=== PATIENT | male | born 1960 | race Caucasian/White ===

== ENCOUNTER → 2017-08-13 | Outpatient (CLI) | payer OTHER ==
--- NOTE | 2017-08-18 15:36 | P.ARTDOP ---
Arterial Doppler LOWER EXTREMITY ARTERIAL DOPPLER: DATE OF SERVICE: 08/13/2017 Reason for study: Bilateral leg pain. Doppler waveforms: Multiphasic bilaterally throughout. Pulse volume recording: Normal configuration. Pressure gradients: None dramatic. Ankle-brachial indices: Greater than 1 on the left and 0.87 on the right.. Toe pressures: [] on the right, [] on the left Impression: Left side is normal. 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
== END | disposition home or self-care (01) ==
LOC: RADUSWWP 09:04
PROVIDERS: ATTEND Family Medicine
DX: M79.605 Pain in left leg (principal); M79.604 Pain in right leg
CPT/HCPCS: 93923

== ENCOUNTER → 2017-12-01 | Outpatient (CLI) | payer MEDICARE, OTHER ==
--- NOTE | 2017-12-02 02:42 | MR ---
EXAMINATION TYPE: MR cspine/lspine wo con DATE OF EXAM: 12/01/2017 COMPARISON: Cervical spine 11/05/2008 HISTORY: Neck and low back pain TECHNIQUE: Multiplanar, multisequence imaging of the lumbar spine is performed without IV contrast. FINDINGS: There is mild straightening of the cervical vertebra. There is some narrowing of the C6-7 d isc space. There are small posterior disc herniations at CT 4 5 C5-6 C6-7. Cervical spinal cord has n ormal signal pattern. There is no edema. I see no significant spinal stenosis. There is no cervical p araspinal mass. There is slight narrowing also of C5-6 disc space. I see no focal bone destruction. T he brainstem is intact. Lumbar vertebra have normal alignment. There is slight decreased signal in the disks at L4-5 L5-S1. T here is small posterior disc bulging at L4-5 and L5-S1. There is developmentally adequate spinal [place] l. The neural foramina appear normal. I see no focal bone destruction. Sacroiliac joints appear intac t. There is some lateral disc bulging noted at L2-3 L3-4 on the left side. There is no compression fr acture. CONCLUSION: Spondylotic changes in the lower cervical spine with posterior disc bulging from C4 to C7. C5-[address] able compared to old exam. Disc bulging at C4-5 and C7-T1 is increased. No cervical bony spinal steno sis. Spondylotic changes in the lower lumbar spine with posterior disc bulging at L4-5 and L5-S1. No spina l stenosis. There is also some lateral disc bulging as above at L2-3 and L3-4 on the left side. No fr acture.
== END | disposition home or self-care (01) ==
LOC: RADMRIMAIN 18:04
PROVIDERS: ATTEND Psychiatry & Neurology Neurology
DX: M50.221 Other cervical disc displacement at C4-C5 level (principal); M51.27 Other intervertebral disc displacement, lumbosacral region; M47.812 Spondylosis without myelopathy or radiculopathy, cervical region; M47.817 Spondylosis without myelopathy or radiculopathy, lumbosacral region; Z88.8 Allergy status to other drugs, medicaments and biological substances
CPT/HCPCS: 72141; 72148

== ENCOUNTER → 2018-01-11 | Outpatient (CLI) | payer MEDICARE, OTHER ==
[2018-01-11 14:34] LABS: Albumin 4.4 g/dL (3.5-5.0); Bilirubin, Delta 0.2 mg/dL (0.0-0.2); Bilirubin,Unconjugated 0.2 mg/dL (0.0-1.1); Total Bilirubin 0.4 mg/dL (0.2-1.3); Total Protein 7.1 g/dL (6.3-8.2)
[2018-01-11 19:03] LABS: Iron Saturation 12.87 (15.00-50.00)
== END | disposition home or self-care (01) ==
LOC: LABWHC1 13:55
DX: R74.8 Abnormal levels of other serum enzymes (principal)
CPT/HCPCS: 36415; 80076; 82728; 83540; 83550

== ENCOUNTER → 2018-01-11 | Outpatient (CLI) | payer MEDICARE, OTHER ==
--- NOTE | 2018-01-11 14:47 | CTL ---
EXAMINATION TYPE: CT Low Dose Lung DATE OF EXAM ORDERED: 01/11/2018 HISTORY: Long-term tobacco use. Lung cancer screening Automated exposure control for dose reduction was used. SCREENING VISIT: Initial study COMPARISON: None TECHNIQUE: Low dose computed tomography scan was performed through the chest at 1 mm thick sections a nd reconstructed images in the coronal plane at [address] DIAGNOSTIC QUALITY: Satisfactory FINDINGS: LUNG NODULES: None. Few scattered micronodules for reference 2 x 3 mm nodule left mid lung axial image 155. No suspicious greater than 4 mm nodules are present. LUNGS: COPD: Severity: None Fibrosis: Severity: None Lymph nodes: None Other findings: None BILATERAL PLEURAL SPACE: Effusion: None Calcification: None Thickening: None Pneumothorax: None HEART: Heart Size: Normal Coronary calcification: Minimal Pericardial effusion: Minimal OTHER FINDINGS: Upper abdomen: Heterogeneous hypodense liver consistent with fatty infiltration Bony thorax: Mild multilevel spurring mid to lower thoracic spine Supraclavicular region: None Other: None IMPRESSION: No suspicious nodules are seen. FOLLOW UP CT CHEST RECOMMENDATION: Annual low-dose lung screening CT CT LUNG RAD: Lung-Rad 2 Benign Appearance or Behavior
== END | disposition home or self-care (01) ==
LOC: RADCTMAIN 13:31
PROVIDERS: ATTEND Internal Medicine Hematology & Oncology
DX: Z12.2 Encounter for screening for malignant neoplasm of respiratory organs (principal); Z87.891 Personal history of nicotine dependence

== ENCOUNTER → 2018-11-03 | Outpatient (CLI) | payer MEDICARE, OTHER ==
--- NOTE | 2018-11-03 11:11 | CT ---
EXAMINATION TYPE: CT abdomen w con DATE OF EXAM: 11/03/2018 COMPARISON: 04/15/2011 HISTORY: Liver cyst CT DLP: 1266.70 mGycm CONTRAST: CT scan of the abdomen is performed with Oral Contrast and with IV Contrast, patient injected with 1 00 ml mL of Isovue 300. FINDINGS: LUNG BASES-: No visible nodule. No infiltrate. LIVER/GB: No calcified gallstones. No space occupying hepatic lesion. Biliary tree is of normal ca liber. 1.8 cm cyst left hepatic lobe lateral segment. Underlying fatty hepatic infiltration. PANCREAS: No inflammation. No distinct mass. SPLEEN: No splenic enlargement. No lesion seen. ADRENALS: No nodule. No thickening. KIDNEYS/BLADDER: No hydronephrosis. No nephrolithiasis. No distinct renal mass. Urinary bladder g rossly unremarkable. BOWEL: Normal appendix. Normal bowel caliber. No inflammation. LYMPH NODES: No greater than 1cm abdominal or pelvic lymph nodes are appreciated. AORTA: No significant abnormality. OSSEOUS STRUCTURES: No significant abnormality is seen. OTHER: No significant additional abnormality is seen. IMPRESSION: 1. Fatty liver. 2. Simple hepatic cysts.
== END ==
LOC: RADCTMAIN 09:54
PROVIDERS: ATTEND Family Medicine
DX: K76.0 Fatty (change of) liver, not elsewhere classified (principal); K76.89 Other specified diseases of liver
CPT/HCPCS: 74160; Q9967